=== PATIENT | male | born 1930 | race Caucasian/White ===

== ENCOUNTER 2016-10-22 08:18 | Inpatient (IN) | payer MEDICARE ==
[~2016-10-22] VITALS: Ht 172.7 cm; Wt 82.1 kg
--- NOTE | ~2016-10-22 | CON ---
[place], [place] REPORT OF CONSULTATION NAME: PABLITO SULLIVAN [facility] #: [id number] UNIT #: [id number] ROOM: 310 DOCTOR: FLORIAN TRUJILLO DPM BIRTHDATE: [birth year] DOS: 10/25/2016 He is in room 310, bed 1. SUBJECTIVE: This patient is seen as consulted for evaluation of a left heel wound. The patient is a resident of [facility] and was admitted for mental status changes. They were unaware of how long the wound has been on the left heel. PAST MEDICAL HISTORY: Positive for dementia, generalized anxiety order, gastroesophageal reflux disease, hypothyroidism, depression, Parkinson's, restless leg syndrome, schizoaffective disorder. ALLERGIES: The patient has no known drug allergies. MEDICATIONS: His current medications include Sinemet, Requip, Lasix, Depakote, Protonix, Synthroid, Neurontin, Exelon, Namenda, Geodon, Ativan. OBJECTIVE: EXTREMITIES: Upon lower extremity physical examination, DP pedal pulses are mildly decreased. PT pedal pulses are difficult to palpate. Skin temperature is cool at the toes. Skin is thin and shiny. Hair growth is diminished. There is dependent edema noted bilaterally with negative Homans sign. Upon neuro exam, sensation appears to be somewhat diminished bilaterally. The patient has a healed wound noted at the posterior plantar portion of the left heel, which measures probably 3-4 cm in diameter. It is full thickness into subcutaneous tissue. There is some necrotic tissue noted in the center portion of the wound. There are no active signs of infection. There is no surrounding edema or erythema. No purulent drainage or malodor. No bone is visible or palpable at this time, no signs of cellulitis or abscess. ASSESSMENT: Chronic left heel ulcer. Probable peripheral artery disease. PLAN: Consultation is performed. The patient was seen with his nurse. I recommend a heal protector and offloading of the left heel, recommend Bactroban and a dressing once a day to the area for now. Possibly change wound care once we establish arterial flow, noninvasive arterial Doppler were ordered bilaterally to evaluate for PAD. An x-ray was ordered to evaluate for underlying osteomyelitis. The patient will be followed up on Friday for reevaluation and go over his test results. For right now offloading the wound care for now until testing is done. Thanks for the opportunity to take part in care of this patient. [place], [place] REPORT OF CONSULTATION NAME: PABLITO SULLIVAN Keren UNIT #: [id number] ROOM: 310 DOCTOR: FLORIAN TRUJILLO DPM BIRTHDATE: [birth year] FLORIAN TRUJILLO DPM CM:CONSTR:REPORT OF CONSULTATION 1225 10/26/16 0118 interface
--- NOTE | ~2016-10-22 | PR ---
[place], [place] PROGRESS NOTE [id number] UN[facility] #: [id number] ROOM: 310 DOCTOR: FLORIAN TRUJILLO DPM BIRTHDATE: [birth year] DOS: 10/28/2016 SUBJECTIVE: This patient is seen for followup of left heel wound. He did have his x-ray and arterial Doppler was done at this time. He had no complaints. OBJECTIVE: EXTREMITIES: DP pedal pulses are mildly decreased. PT pedal pulses are difficult to palpate. Skin is thin and shiny. Skin temperature is cool. Dependent edema is seen bilaterally. Plantar posterior left heel actually looks improved. There is much less necrotic tissue. There is still some fibrous and slough tissue noted, but about 40-50% of the wound is starting to granulate, appears to be improving at this time. There is some mild malodor from the slough tissue, no surrounding edema or erythema. No signs of infection, clinically. His x-ray was negative for osteomyelitis. His arterial Doppler showed monophasic flow in the feet with significant atherosclerosis. ASSESSMENT: PAD, chronic left heel ulcer. PLAN: Evaluation and management. We are going to change wound care to [facility] with foam border and dry dressing as well as PRAFO boot to the left foot. Discussed results of the vascular and x-ray. We will continue with conservative management. Continue offloading. The wound looks better today than it did 3 days ago with less necrotic tissue and it does look healthier. Consider debridement in the future, but his vascular study showed monophasic flow. We will continue to follow while he is in the hospital. FLORIAN TRUJILLO DPM CM:PNTRANS [id number] [id number] FLORIAN TRUJILLO DPM 10/29/16 1011 interface
--- NOTE | ~2016-10-22 | CON ---
[place], [place] REPORT OF CONSULTATION NAME: PABLITO SULLIVAN UNIT #: [id number] ROOM: 310 DOCTOR: NASREEN HUBBARD BIRTHDATE: [birth year] DOS: 11/01/2016 HISTORY OF PRESENT ILLNESS: This 86-year-old gentleman from local detention significant decline in his mental status, labile, verbally and physically abusive, yelling out loudly with heart rate of 70. Difficult to redirect, escalating to the point where he had the entire word in up for disruptive ____ nursing facility stated they can no longer meet his needs and they need alternative placement once he was excepted and treated. He was admitted to rule out organic factors and stabilize medications. PAST MEDICAL HISTORY: Parkinson's disease, hypothyroidism, GERD, dementia, aggressive flu-like syndrome. He was diagnosed with brief psychotic disorder and rule out major depression with psychotic features. MENTAL STATUS: The patient is alert and oriented to person and place, I do not think time. No overt signs of auditory or visual hallucinations, delusions, paranoia, chalino, or hypomania. There are definitely some short term memory deficits, which is consistent with his dementia. PLAN: The patient is being discharged to [facility]. I believe at [place], he is being discharged on the following medications: He will be on Namenda 5 mg q.a.m. and 10 mg at bedtime in 2 weeks. Facility needs to increasing the Namenda to the maximum dose of 10 mg b.i.d. He is on Exelon patch 9.5 mg q.a.m. in 4 weeks, this needs to be increased to 13.3 mg q.a.m., Depakote is 500 mg t.i.d., again his last valproic acid level was on 10/28/2016 and it was 53.4. I recommend that his valproic acid level be checked at least every 3 months while he is on Depakote. He is on vitamin D 1000 units q.a.m. and that is all are psych meds that he is on. He is being discharged in stable condition. NATHANAEL HUBBARD CNP CM:CONSTR:REPORT OF CONSULTATION 1 11/01/16 1544 interface
--- NOTE | ~2016-10-22 | PR ---
[place], [place] PROGRESS NOTE NAME: PABLITO SULLIVAN UNIT #: [id number] ROOM: 316 DOCTOR: BRANDY PARISH MD BIRTHDATE: [birth year] DOS: 10/26/2016 CHIEF COMPLAINT: "Look at what they are doing over there, I saw them on TV, they are up to no good." SUMMARY OF THE VISIT: The patient was interviewed as he reclined in a Jody chair in the dining area. He remains very confused. He was also very labile and was shouting over to me to come near him. He was very upset about having seen something on television and seemed to then transfer this as if it was actively occurring around him. He did eventually redirect with a great deal of difficulty. MENTAL STATUS: He is alert and oriented to self. It is unclear if he realizes he is in the hospital, although this is was very doubtful. He is certainly not oriented to time. Mood remains labile. He is very easily agitated. There are no symptoms of auditory or visual hallucinations at this point, but there is a delusional system present. Short term memory is very poor. PLAN: His valproic acid level was subtherapeutic at 43.7. I will go ahead and increase his Depakote Sprinkles from 500 mg b.i.d. to t.i.d. I will simultaneously increase Namenda from 5 mg a day to 5 mg b.i.d. and increase Exelon patch from 4.6 mg daily to 9.5 mg daily. I am still looking into the possibility of getting him started on Nuplazid given the fact that he has significant Parkinson's and is on Sinemet which could be contributing to his psychosis. We will engage in individual and valiente milieu activity, returning then to the least restrictive environment when psychiatrically stable. BRANDY PARISH MD CM:PNTRANS 1125 [id number] BRANDY PARISH MD 10/26/16 1247 interface
--- NOTE | ~2016-10-22 | PR ---
[place], [place] PROGRESS NOTE NAME: PABLITO SULLIVAN UNIT #: [id number] ROOM: 316 DOCTOR: BRANDY PARISH MD BIRTHDATE: [birth year] DOS: 10/27/2016 CHIEF COMPLAINT: "Hey evaristo, good morning, what am I doing here." SUMMARY OF THE VISIT: The patient was interviewed as he was in the dining area, watching television, reclining in his Jody chair. He engaged readily in conversation. Most of it was superficial and in response to my questions. He was fixated on what was happening across the room, but was at least engaging. There was no agitation noted this morning. Later, I did here him yelling out, but when I did discuss this with the nurse, it was because he was yelling to use the restroom. Subsequently, he calmed after this was done. MENTAL STATUS EXAMINATION: He is alert and oriented to person, possibly place, although it is doubtful, certainly not time. Mood does seem to be trending towards euthymia. He has only required 1 p.r.n. intervention on Friday and none since then. He does redirect more readily. There is no hypomania or chalino. There are no auditory or visual hallucinations noted. Memory is poor and he processes slowly. PLAN: I will increase Namenda to 5 mg in the morning and 10 mg at night. I will recheck a valproic acid level in the a.m. to make certain that he is therapeutic. We would still like to consider the possibility of adding Nuplazid given the fact that he does have severe Parkinson's and I believe this is contributing to his mood lability and agitation. We will continue to engage in individual and valiente milieu activity with the plan then to return to the least restrictive environment when psychiatrically stable. BRANDY PARISH MD CM:PNTRANS [id number] BRANDY PARISH MD 10/27/16 1451 interface
--- NOTE | ~2016-10-22 | WRIGHTHP ---
[place], [place] PATIENT HISTORY AND PHYSICAL EXAM [id number] UN[facility] #: [id number] ROOM: 310 DOCTOR: BRANDY PARISH MD BIRTHDATE: [birth year] DOS: 10/25/2016 CHIEF COMPLAINT: "It's over there, can't she see it." HISTORY OF PRESENT ILLNESS: This is an 86-year-old white male who is a resident of [facility] in the [facility]. The patient apparently has had a significant decline in mental status to the point where he has been extremely labile and verbally and physically abusive. He has been yelling out loudly, also yelling out a tirade of obscenities. The patient does not redirect and in fact he continued to escalate to the point where he had the entire valiente milieu in an uproar. [facility] has reported that he is so disruptive, they no longer can meet his needs, and they feel that he needs to be in an alternative placement. The patient has likewise been becoming increasingly physically combative. He is admitted now to rule out any organic factors, to stabilize on medication, and to seek alternative placement, which most likely at this point will be [facility]. PAST MEDICAL HISTORY: Remarkable for Parkinson's disease, hypothyroidism, GERD, dementia, restless leg syndrome. MENTAL STATUS: The patient is alert and oriented to self only. He is very confused and disoriented. His responses to me were nonsensical at times and he tended to ramble. He does seem to be experiencing some type of hallucinations as well. He does have a significant processing issue and short-term memory is exceedingly poor. DIAGNOSIS: Brief psychotic disorder, rule out major depression with psychotic features. PLAN: I have already discontinued his donepezil in lieu of Exelon patch 4.6 mg a day. I have doubled his Depakote from 250 mg twice daily to 500 mg twice daily. I have discontinued his Zoloft at this point and we will continue to monitor his mood status. Given the fact that he has severe Parkinson's disease and does seem to have a psychosis secondary to the Parkinson's, I will see if we can obtain Nuplazid 34 mg daily to decrease the psychosis secondary to Parkinson's. We will continue to engage him in individual and valiente milieu activity. We will finalize discharge plans that he can return to [facility] and will discharge then when psychiatrically stable. [place], [place] PATIENT HISTORY AND PHYSICAL EXAM NAME: APBLITO SULLIVAN UNIT #: [id number] ROOM: 310 DOCTOR: BRANDY PARISH MD BIRTHDATE: [birth year] BRANDY PARISH MD CM:HISPHYS:PATIENT HISTORY AND PHYSICAL EXAMINATION 0759 0821 BRANDY PARISH MD 10/25/16 0821 interface
[2016-10-22] MEDS ORDERED: ASPIRIN CHEWABL81 M1 PO (18:17)
[2016-10-22] MEDS ORDERED: ATIVAN2 MG/1 ML IJ (18:18)
[2016-10-22] MEDS ORDERED: ATIVAN1 MG PO (18:19)
[2016-10-22] MEDS ORDERED: Sinemet Cr 25-11 TAB PO (18:19)
[2016-10-23] MEDS ORDERED: Sinemet Cr 25-11 TAB PO (16:07)
[2016-10-23] MEDS ORDERED: SINEMET 25-1001 EACH PO (16:09)
[2016-10-23] MEDS ORDERED: DEPAKOTE250 MG PO (16:11)
[2016-10-23] MEDS ORDERED: ARICEPT5 M1 PO (16:12)
[2016-10-23] MEDS ORDERED: LASIX20 MG PO (16:12)
[2016-10-23] MEDS ORDERED: GABAPENTIN100 M2 PO (16:13)
[2016-10-23] MEDS ORDERED: KLONOPIN0.5 MG PO (16:14)
[2016-10-23] MEDS ORDERED: MULTI-DAY VITA1 EACH PO (16:15)
[2016-10-23] MEDS ORDERED: NIACIN50 M1 PO (16:17)
[2016-10-23] MEDS ORDERED: PROTONIX TR40 M1 PO (16:17)
[2016-10-23] MEDS ORDERED: REQUIP0.5 MG PO ×2 (16:18→16:19)
[2016-10-23] MEDS ORDERED: Synthroid,Lev100 MCG PO (16:20)
[2016-10-23] MEDS ORDERED: ZOLOFT50 MG PO (16:20)
[2016-10-23] MEDS ORDERED: GEODON20 MG PO (16:21)
[2016-10-23] MEDS ORDERED: HYDROCIL INSTA1 EACH PO (16:23)
--- NOTE | 2016-10-24 15:37 | NUR ---
Mr Susanna is a new PT, that came into the unit at the end of RT Group/riddles,choices
[2016-10-24 15:57] VITALS: BP 107/56; BP 108/60
--- NOTE | 2016-10-24 16:06 | NUR ---
DR. PABLITO CASANOVA AWARE OF CONSULT FOR MEDICAL MANAGMENT, MED REQ AND HISTORY COMPLETE
[2016-10-24 16:40] VITALS: BP 108/60
--- NOTE | 2016-10-24 17:38 | NUR ---
PABLITO SULLIVAN Keren a 86 year old M admitted via wheel chair from the ADMITTING as a voluntary admission VIA GUARDIAN. Arrived on unit at 1513. ALLERGIES: NKA. Vital signs are: 98.1-71-18 108/60, 96% RA. The client signed the following forms with stated understanding: Authorization For The Release of Medical Information, Clothing List, Consent to Voluntary Admission and Hospitalization, Consent and Release Forms/Receipt of Rights, Acknowledgement of Advance Directive Information, Behavioral Health Consent Form, and Informed Consent of Medications. Admitted under the services of Dr. JEM TEIXEIRA,[facility]. A search was conducted and hazardous articles were removed. Client was oriented to the unit. GEM RODRIGUEZ
[2016-10-24 20:20] VITALS: BP 146/75
--- NOTE | 2016-10-24 22:22 | NUR ---
XRAY SCRIPT READER ON UNIT TO OBTAIN XRAYS
--- NOTE | 2016-10-25 03:59 | NUR ---
24 HR chart check completed.
--- NOTE | 2016-10-25 05:54 | NUR ---
PT SLEPT PAST 0032. NO S/S OF DSITRESS NOTED. NO C/O PAIN. DRESSINGS TO WOUNDS REMAIN INTACT. FEET ELEVATED WITH HEELS OFF THE BED. PT WILL MOVE FEET OFF PILLOW MULTIPLE TIMES AND PT REDIRECTED WITH NO EFFECTIVENESS. PT GIVEN BED BATH THIS AM. PT DID NOT YELL OUT THIS SHIFT. MEDICATION COMPLIANT. Q15 MINUTE SAFETY CHECKS MAINTAINED.
[2016-10-25 07:15] LABS: BASO % 0.3 % (0.0-1.0); EOS % 0.1 % (1.0-4.0); HEMATOCRIT 33.8 % (42.0-52.0); HEMOGLOBIN 10.9 g/dl (14.0-18.0); LYMPH % 13.1 % (27.0-41.0); MEAN CELL VOLUME 102.1 fl (80.0-94.0); MEAN CORPUSCULAR HGB 32.9 pg (27.0-31.0); MEAN CORPUSCULAR HGB CONC 32.2 g/dl (33.0-37.0); MEAN PLATELET VOLUME 11.1 fl (9.6-12.3); MONO # 0.7 10*3/uL (0.1-1.0); MONO % 9.6 % (3.0-9.0); NEUT # 5.7 10*3/uL (2.3-7.9); NEUT % 76.5 % (47.0-73.0); PLATELET COUNT AUTOMATED 165 10*3/uL (130-400); RED BLOOD COUNT 3.31 10*6/uL (4.50-5.90); RED CELL DISTRI WIDTH 13.8 % (0-14.5); WHITE BLOOD COUNT 7.4 10*3/uL (4.8-10.8)
[2016-10-25 07:54] VITALS: BP 106/55
[2016-10-25 08:01] LABS: ALBUMIN 2.4 gm/dl (3.1-4.5); ALKALINE PHOSPHATASE 71 U/L (45-117); BUN 22 mg/dl (7-24); CHLORIDE 108 mmol/L (98-107); CREATININE 0.76 mg/dL (0.70-1.30); POTASSIUM 3.6 mmol/L (3.5-5.1); SGOT/AST 22 IU/L (3-35); SGPT/ALT 6 U/L (12-78); SODIUM 144 mmol/L (136-145); TOTAL PROTEIN 6.7 gm/dL (6.4-8.2)
[2016-10-25 08:19] LABS: VITAMIN D, 25-HYDROXY 27.8 ng/mL (30-100)
--- NOTE | 2016-10-25 08:44 | NUR ---
PT INCONTINENT OF URINE. PT REPORTS THAT HE WOULD LIKE TO TRY AND URINATE IN A URINAL FOR URINE SPECIMEN COLLECTION AT A LATER TIME. SAYS HE IS UNABLE TO VOID AT THIS TIME.
--- NOTE | 2016-10-25 09:26 | NUR ---
TREATMENT TEAM WAS HELD TO DISCUSS CARE WITH THE FOLLOWING: DR. PARISH, NURSE PRACTIONER, MEDICAL STUDENT, RN, AT, AND SW. PT WAS TRANSF[facility]. PT PLEASANTLY CONFUSED.
--- NOTE | 2016-10-25 09:48 | NUR ---
SAEED left vm for Yu to update Pasrr-significant change paperwork after she had told this SWS that Deborah was to update it at [facility], but upon talking to Deborah, Deborah states that Yu should update it since the pt. has been there and she knows the pt. SAEED also left a message with Alyson the admission director at that the paperwork needed for the update on the Pas[facility] has been faxed to Yu to update.
--- NOTE | 2016-10-25 10:27 | NUR ---
PABLITO SULLIVAN [id number] Please refer to the physician's history and physical for past medical history, comorbid conditions, and allergies. Diagnosis: BRIEF PSYCHOTIC DISORDER Berhane Score: 14,VERY HIGH RISK WOUND DESCRIPTIONS: Location of the wound: left heel Type of wound: unstageable Thickness: Full Size: 3.0cm x 4.0cm x <0.1cm Tunneling: none Undermining: none Sinus Tract: none Presence of Exudate: none Amount: None Color: Brown Odor: None Periwound Skin Appearance: Normal Wound edges: approximated Pain (associated with wound): none at time of assessment How does patient state this happened? pt stated started back in june then in the same sentence stated it was 10 days ago. Right heel red and blanchable area noted. Location of the wound: right buttocks Type of wound: stage 2 Thickness: Partial Size: 1.0cm x 1.0cm x 0.1cm Tunneling: none Undermining: none Sinus Tract: none Presence of Exudate: Sanguineous Amount: Light Color: Red Odor: None Periwound Skin Appearance: Normal Wound edges: approximated Pain (associated with wound): none at time of assessment How does patient state this happened? pt didnt say how this occured Surface the patient is resting on: Proform SKIN PREVENTION RECOMMENDATION: 1. Pressure redistribution support surface as appropriate 2. Elevate heels 3. Remove boots/TEDS every shift and reapply 4. Head of bed 30 degrees as tolerated 5. Assess nutrition and hydration 6. Manage moisture 7. Avoid the use of containment devices while in bed 8. Use absorptive products on surfaces limit layers of linens on bed 9. Turn and reposition every 1-2 hours in bed and every 1 hour in chair as tolerated 10. Weight shifts every 15 minutes while up in chair 11. Offloading with pillows or device to keep heels elevated off bed 12. Monitor skin at least every shift 13. Inspect under medical devices twice a day WOUND TREATMENT RECOMMENDATIONS: Consult podiatry since Dr. Meza isn't able to see the patient until friday. Heel raiser pro boots to BLE if able to get PRAFO boots change order once we get them in. Calazime to buttocks.
--- NOTE | 2016-10-25 10:37 | NUR ---
PT YELLING OUT AND IS NOT EASILY REDIRECTIBLE. PT BEGAN BANGING A TABLE TOP AGAIN THE WINDOW WHILE SITTING IN GERICHAIR. PT IS DISORIENTED, CONFUSED AND ANXIOUS. ATIVAN GIVEN CRUSHED IN PUDDING TO HELP DECREASE PATIENT'S ANXIOUS BEHAVIOR.
--- NOTE | 2016-10-25 10:39 | NUR ---
PT ENCOURAGED TO URINATE IN CUP FOR URINE SPECIMEN COLLECTION BUT PATIENT DOES NOT COMPREHEND THIS RN'S REQUEST. HE IS FIXATED ON YELLING OUT "7A OR 7B" REPEATEDLY. WILL ATTEMPT TO COLLECT URINE SPECIMEN ONCE ATIVAN TAKES EFFECT.
--- NOTE | 2016-10-25 10:51 | NUR ---
SONDRA, A STAFF MEMBER AT DR. MCKEON'S OFFICE, MADE AWARE THAT DR. MCKEON HAS BEEN CONSULTED TO SEE PATIENT FOR FOOT WOUNDS. SHE STATED THAT DR. LI WILL BE IN TO SEE THE PATIENT LATER TODAY.
--- NOTE | 2016-10-25 11:06 | NUR ---
PT was in attendence for RT Group/Discussion during the first approximate 10 minutes. PT was yelling out for various things. Asked PT to please stop yelling and interupting group. PT stated i was interuping him and started yelling for a nurse. PT was removed to quiet room. Nurse notified
--- NOTE | 2016-10-25 11:47 | NUR ---
ATIVAN EFFECTIVE IN DECREASING ANXIOUS SYMPTOMS. PT IS CURRENTLY IN ACTIVITY ROOM SITTING IN [facility]. HE IS CALM AND CONFUSED.
--- NOTE | 2016-10-25 12:11 | NUR ---
CLINICALS GIVEN TO GIOVANNY AT [facility]. POLY 6 DAYS. - WITH NEXT REVIEW DUE 10/29.
--- NOTE | 2016-10-25 13:27 | NUR ---
PHYSICAL THERAPY Staff has been educated to keep patient off of his feet due to significant wounds. Staff using mauro at this time. Not appopriate for PT services currently. thank you for this referral. Cinthia Swenson,PT
--- NOTE | 2016-10-25 13:31 | NUR ---
ATTEMPT MADE TO STRAIGHT CATH MET WITH RESISTANCE. PT WAS COOPERATIVE WITH DURING PROCESS BUT THIS RN WAS UNABLE TO COLLECT URINE. PT WAS ASSISTED FROM [facility] TO HIS BED AND EPISODE OF INCONTINENCE WAS CLEANSED WITH 2 STAFF ASSIST. PT WAS TRANSFERED USING A GEIRCHAIR DUE TO PATIENT'S INABILITY TO BARE WEIGHT AT THIS TIME. BILATERAL HEEL PROTECTORS APPLIED TO PATIENT RECOMMENDED BY GOLDY CA.
--- NOTE | 2016-10-25 14:35 | NUR ---
PT did not attend RT Group/games. PT was asleep in his room
--- NOTE | 2016-10-25 15:32 | NUR ---
PT is unable to answer questions on assessment form. PT too confussed
--- NOTE | 2016-10-25 15:58 | NUR ---
Dr. Galloway and Dr. Morris made aware that patient in incontinent of urine and that when attempting to straight cath patient, this RN mmet resistance. Will continue to attempt to collect specimen using frequent urinal offerings.
--- NOTE | 2016-10-25 18:03 | NUR ---
MAKI from [facility] reporting that Pt is covered 6 days - with review on .
--- NOTE | 2016-10-25 18:28 | NUR ---
PT IS DISORIENTED, CONFUSED BUT CALM FOR THE MOST PART AFTER ATIVAN WAS GIVEN. PT'S APPETITE IS GOOD HE ATE ALL MEALS TODAY. PT ATTEMPTS TO REMOVE HIS PROTECTIVE BOOTS MANY TIMES THROUGHTOUT THE DAY AND DOES NOT UNDERSTAND WHY THEY HAVE BEEN PLACED. HE CONTINUES TO SIT IN GERICHAIR IN A RECLINED POSITION IN ORDER TO KEEP FEET ELEVATED.
[2016-10-25 20:00] VITALS: BP 130/86
--- NOTE | 2016-10-26 00:19 | NUR ---
ATTEMPT TO PLACE CONDOM CATH UNSUCCESSFUL DUE TO RETRACTION. WILL ATTEMPT A PEDIATRIC BAG COLLECTION FOR URINE SAMPLE.
--- NOTE | 2016-10-26 00:32 | NUR ---
PEDIATRIC URINARY DRAINIGE BAG PLACED. FREQUENT ASSESSMENT FOR URINATION IN PLACE.
--- NOTE | 2016-10-26 01:20 | NUR ---
ULCER TO LT HEEL CLEANSED WITH NORMAL SALINE, BACTROBAN APPLIED, DRESSING IN PLACE.
--- NOTE | 2016-10-26 04:57 | NUR ---
PT SLEPT POORLY DURING THIS SHIFT, FREQUENTLY AWAKENING WITH NONSENSICAL SPEECH. ALERT TO NAME ONLY. UNABLE TO PROPERLY ASSESS FOR DELUSIONAL THOUGHT PROCESSES, SI/HI. PT MEDICATION COMPLIANT WITH MUCH PROMPTING. PLEASANTLY CONFUSED. REFER TO FLOWSHEET FOR ADDITIONAL INFO
--- NOTE | 2016-10-26 06:11 | NUR ---
PT SLEPT <4HRS WITH FREQUENT INTERRUPTIONS
[2016-10-26 08:03] VITALS: BP 117/51
--- NOTE | 2016-10-26 18:20 | NUR ---
Christian is noted to be oriented to person only and during time spent with staff he responded for the most part with irrelevant statements. Unable to comprehend simple instructions or to complete simple tasks due to limited cognitive functioning. Requires maximal assistance with ADL's. He is restless and confused and makes continuous attempts to climb out of bed and out of gerichair. Fall precautions maintained. Valproic Acid level @ 43.7. Dr. Rodriguez in with orders received to increase the Depakote 500 mg po tid, increase the namenda to 5 mg bid and exelon increased to 9.5 mg q hs. He has napped approximately one hour. Appetite is good for meals with encouragement. Refer to [facility] flowsheet for specific monitoring. Refer to process intervention screen for wound care.
[2016-10-26 20:25] VITALS: BP 108/62
--- NOTE | 2016-10-27 03:32 | NUR ---
24HR CHART CHECK COMPLETE
--- NOTE | 2016-10-27 05:34 | NUR ---
PT SLEPT >5HRS WITH FREQUENT INTERRUPTIONS. PT VISUALIZED PICKING AT UNSEEN OBJECTS IN THE AIR WHILE IN HIS ROOM. PT ORIENTED TO PERSON ONLY. NO CHANGE IN BEHAVIORS NOTED. PLEASANTLY CONFUSED. REFER TO FLOWSHEET FOR ADDITIONAL INFO
[2016-10-27 08:20] VITALS: BP 102/57
--- NOTE | 2016-10-27 10:23 | NUR ---
PATIENT RECEIVED COMPLETE BED BATH THIS SHIFT. TOILETED AND WAS CONTINENT OF URINE AND LARGE AMOUNT OF NON-FORMED, BROWN STOOL WITH MODERATE AMOUNT OF BLOOD. ALEM BA NOTIFIED AND CAME TO ROOM TO ASSESS.
--- NOTE | 2016-10-27 10:44 | NUR ---
PT HAD LARGE SOFT BM THIS SHIFT WITH MODERATE AMOUNT BRIGHT RED BLOOD NOTED IN STOOL, CALL PLACED TO DR. GROSS, MADE AWARE, VITALS STABLE, 97.5-64-18-112/60-98% ROOM AIR. MADE AWARE PT DOES HAVE EXTERNAL HEMMORHOIDS UPON ASSESSMENT. N.N.O. RECIEVED AT THIS TIME, DR. GROSS STATES TO CONTINUE TO MONITOR.
--- NOTE | 2016-10-27 10:46 | NUR ---
URINALYSIS OBTAINED VIA CLEAN CATCH, LABELED AND SENT TO LAB. URINE NOTED TO BE CLOUDY AND FOUL SMELLING.
[2016-10-27 10:56] LABS: BILIRUBIN NEGATIVE (NEGATIVE); BLOOD 3+ (NEGATIVE); CLARITY CLOUDY (CLEAR); COLOR YELLOW (YELLOW); GLUCOSE NEGATIVE (NEGATIVE); KETONE TRACE (NEGATIVE); LEUKO ESTERASE 3+ (NEGATIVE); NITRITE POSITIVE (NEGATIVE)
[2016-10-27 11:22] LABS: BACTERIA 3+; CALCIUM OXALATE CRYSTALS FEW; RBC TNTC rbc/hpf (0-2); WBC TNTC wbc/hpf (0-5)
--- NOTE | 2016-10-27 13:09 | NUR ---
DR. LUTHER, DR. GROSS, DR. GERARDO HERE TO SEE PT AT THIS TIME, MADE AWARE OF PT'S URINALYSIS RESULTS.
--- NOTE | 2016-10-27 18:30 | NUR ---
PT IS ALERT WITH CONFUSION. ST/LT MEMORY DEFICITS NOTED. RESPIRATIONS EASY ON ROOM AIR. MOOD IS STABLE WITH FLAT AFFECT. PT OCCASIONALLY YELLS OUT BUT IS EASILY REDIRECTABLE. PT DENIES HALLUCINATIONS, NO RESPONSE TO INTERNAL STIMULI NOTED. PT DENIES SI/HI. NO PARANOIA/DELUSIONS NOTED. MEDICATION COMPLIANT WITHOUT DIFFICULTY. RELIANT ON STAFF FOR ALL ADLS. FEEDS SELF WITH SET UP ASSIST. DISPLAYS GOOD APPETITE WITH ADEQUATE FLUID INTAKE. FIRST DOSE OF LEVAQUIN GIVEN ORDERED BY DR. GROSS FOR TX OF UTI. NO DISTRESS NOTED. Q15 MIN SAFETY CHECKS MAINTAINED. REFER TO [facility] FLOWSHEET FOR SPECIFIC MONITORING.
--- NOTE | 2016-10-27 19:24 | NUR ---
SHIFT CHART CHECK COMPLETED.
[2016-10-27 20:00] VITALS: BP 129/64
--- NOTE | 2016-10-27 22:04 | NUR ---
24 HR chart check completed.
--- NOTE | 2016-10-28 00:35 | NUR ---
PT HAS BEEN RESTLESS. HAS BEEN YELLING OUT FOR DOUGLAS. VISUAL HALLUCINATIONS SUSPECTED PT HAS INFORMED STAFF SEVERAL WHILE GOING NEAR HIM NOT TO STEP ON THE PUPPIES. MEDICATED WITH ATIVAN 1 MG PO @ 0029.
--- NOTE | 2016-10-28 05:44 | NUR ---
ATIVAN GIVEN WAS ONLY EFFECTIVE BRIEFLY. PT SLEPT LESS THAN 3 HOURS WITH INTERMITTENT NAPPING. HAS BEEN CALMER BUT IS CONFUSED & ALERT TO PERSON ONLY. VISUAL HALLUCINATIONS CONTINUE. HAS BEEN PICKING AT THE AIR & TALKING ABOUT THE PUPPIES.
[2016-10-28 06:54] VITALS: BP 111/62
--- NOTE | 2016-10-28 09:20 | NUR ---
PATIENT SITTING IN GAURI CHAIR. ROUNDING WITH ARAMIS HERRERA CNP AND ASSESSING PATIET'S LEFT FOOT. LIFTED PATIENT'S PANT LEG UP AND OBSERVED 2 SKIN TEARS. 1=0.9X1.0X0 AND 2=0.3X0.2X0 TO LEFT PRUITT, CLEANSED WITH NORMAL SALINE AND APPLIED BANDAID FOR PROTECTION. INTERESTED CONSTITUTION PARTY NOTIFIED.
--- NOTE | 2016-10-28 09:20 | NUR ---
ARAMIS HERRERA CNP ON UNIT TO SEE PATIENT.
--- NOTE | 2016-10-28 09:45 | NUR ---
ARAMIS HERRERA OBEDIENCE TRAINER HERE TO SEE PT AT THIS TIME, ASSESSED HEEL WOUND.
--- NOTE | 2016-10-28 10:15 | NUR ---
[facility] Team was held to discuss care with the following: Dr. Rodriguez, RN, AT, and SW. Pending discharge for FridayOctober 30. Not sleeping at night.
--- NOTE | 2016-10-28 10:15 | NUR ---
PATIENT REFUSED MEDICATION, SPIT THEM OUT. EXELON PATCH IN PLACE.
--- NOTE | 2016-10-28 11:20 | NUR ---
PT was in attendence for RT Group/Reminiscing but did not participate. PT asleep for part of group and did yell out twice but was not disruptive
--- NOTE | 2016-10-28 12:30 | NUR ---
DR. MANUEL ON UNIT TO SEE PATIENT.
--- NOTE | 2016-10-28 15:33 | NUR ---
PT did not attend RT Group this afternoon. PT was in bed.
--- NOTE | 2016-10-28 17:44 | NUR ---
PATIENT IS ALERT AND ORIENTED TO PERSON/HANDS ON CARE ONLY. ST/LT MEMORY DEFICITS NOTED. PATIENT DENIES ANY HALLUCINATIONS, DELUSIONS OR HI/SI. DENIES ANY PAIN OR DISCOMFORT. PATIENT CAN BE ANXIOUS AND RESTLESS AT TIMES. MEAL INTAKES ARE GOOD WITH ADEQUATE FLUIDS. CONTINENT OF BOWEL AND BLADDER. UP IN GAURI CHAIR IN A RECLINED POSITION. MEDICAITON COMPLIANT. Q 15 MINUTE SAFETY CHECKS MAINTIANED.
[2016-10-28 20:11] VITALS: BP 104/58
--- NOTE | 2016-10-29 02:49 | NUR ---
B: AGITATION AND CONFUSION, PT STATES "I NEED MY KEYS, NEED TO GET THESE SHOES OFF SO WE CAN GET OUT OF THIS HOLE" WHILE REMOVING PROFFO BOOT BLE FOR WOUND HEALING. I: PT OFFERED FOOD AND FLUIDS, PROVIDED 1-[address] REORIENT TO PLACE AND TIME. PROVIDED WITH BUSY BOARD FOR DISTRACTION, TAKEN TO QUIET ROOM FOR DECREASE IN STIMULATION R: PT CONSUMED HS SNACK WITH SECONDS, MEDICATION COMPLIANT CRUSHED IN PUDDING, PT EXHIBITING DECREASE IN RESTLESSNESS P: CONTINUE TO PRESENT REALITY, PROVIDE DISTRACTION, PROVIDED 1-1 AND REORIENTATION TO SURROUNDINGS
--- NOTE | 2016-10-29 04:27 | NUR ---
24 HR chart check completed.
--- NOTE | 2016-10-29 06:40 | NUR ---
PT SLEPT APPROXIMATELY 6 HOURS INTERRUPTED. NO S/S OF DISTRESS NOTED. NO C/O PAIN. SEE [facility] FLOWSHEET FOR SPECIFIC MONITORING.
[2016-10-29 07:03] LABS: CHOLESTEROL 94 mg/dL (<200); HDL CHOLESTEROL 29 mg/dl (40-60); LDL CHOLESTEROL 54 mg/dL (9-159); TRIGLYCERIDES 57 mg/dl (<150); VLDL CHOLESTEROL 11 mg/dL (6-40)
[2016-10-29 07:53] VITALS: BP 105/64
--- NOTE | 2016-10-29 11:31 | NUR ---
PT was in attendence during RT Group/Coloring with talking and remininscing. PT did dot participate. AT asked PT if he had a goal for today and PT said "NO." asked group what they would like to do for group and PT would not participate.
--- NOTE | 2016-10-29 13:11 | NUR ---
AT was in activity lounge and overheard another PT ask this PT if he would like to color. PT stated "But what would I color?" So AT found a larger picture for him to color and PT is now enjoying the activity of coloring
--- NOTE | 2016-10-29 14:20 | NUR ---
SWS left message with ОЛЕГ Nicholas at [facility] to give update on siginifcant change paperwork and fax the results to .
--- NOTE | 2016-10-29 14:39 | NUR ---
PATIENT IS ALERT TO PERSON (HANDS ON CARE), ABLE TO VOICE NEEDS. PATIENT HAS BEEN CALM AND PURPOSEFUL, PARTICIPATING IN GROUP, LIKES TO COLOR, NO OUTBURST NOTED OF YET. MOOD IS BECOMING MORE STABLE, WITH SLIGHT CONFUSION. DENIES ANY HALLUCINATION, DELUSION, HI/SI OR PAIN. TOLERATED DRESSING TREATMENT TO LEFT HEEL WELL. NO RESPONSE TO INTERNAL STIMULI. DEPENDENT ON ACTIVITIES OF DAILY LIVING. UP IN GAURI CHAIR. CONTINENT OF BOWEL AND BLADDER. GOOD MEAL INTAKES WITH ADEQUATE FLUIDS. MED COMPLIANT. Q 15 MINUTE SAFETY CHECKS MAINTAINED.
--- NOTE | 2016-10-29 15:34 | NUR ---
PT attended RT Group/coloring and discussion ( PTs requested this again). PT sat and colored pictures and spoke when spoken to but otherwise was quiet as he colored. PT was appropriate entire time in group
--- NOTE | 2016-10-29 16:18 | NUR ---
PATIENT SITTING IN DINNING ROOM CALM, ENCOURAGE FLUIDS, VITALS 90/68, 58, 18, 96.5, 98% RA, RESPIRATIONS EASY, NON-LABORED. ARAMIS HERRERA CNP NOTIFIED OF LOW BLOOD PRESSURE. NEW ORDERS NOTED.
[2016-10-29 19:53] VITALS: BP 102/62
--- NOTE | 2016-10-29 21:59 | NUR ---
B- PT HAS INCREASED AGITATION AND CONFUSION. REPETITIVELY TRYING TO REMOVE PRAFFO BOOTS TO BILATERAL FEET. I- PT REDIRECTED, 1:1 GIVEN TO DISTRACT PT FROM REMOVING BOOTS. PT GIVEN SNACK AND MEDICATION R- PT ATE 100% OF SNACK AND WAS MEDICATION COMPLIANT. PT REDIRECTION EFFECTIVE P- CONTINUE TO REDIRECT PT AND REORIENT TO PERSON, PLACE, AND TIME AND REASONING FOR THE BOOTS.
--- NOTE | 2016-10-29 22:24 | NUR ---
PT MORE ALERT THIS SHIFT. 1:1 WITH A STAFF MEMBER AT THIS TIME AND PT AWAKE AND ALERT TALKING ABOUT A CHECKING ACCOUNT, BASILIO HOWELL.
--- NOTE | 2016-10-30 04:46 | NUR ---
PT SLEPT GREATER THAN 5 HOURS. NO S/S OF DISTRESS OR C/O PAIN. Q 15 MINUTE SAFETY CHECKS MAINTAINED. SEE [facility] FLOWSHEET FOR SPECIFIC MONITORING. DRESSING INTACT TO HEAL. PRAFFO BOOTS INTACT. MEDICATION COMPLIANT THIS SHIFT.
--- NOTE | 2016-10-30 05:59 | NUR ---
24 HR chart check completed.
[2016-10-30] MEDS ORDERED: RIVASTIGMINE1 EAC1 T (08:12)
[2016-10-30] MEDS ORDERED: Sinemet 25 MG-100 MG PO (08:12)
[2016-10-30] MEDS ORDERED: MEMANTINE HCL10 MG PO (08:12)
[2016-10-30] MEDS ORDERED: NAMENDA-5 PO (08:12)
[2016-10-30] MEDS ORDERED: Sinemet Cr 25-11 TAB PO ×2 (08:12)
[2016-10-30 08:33] VITALS: BP 113/59
--- NOTE | 2016-10-30 09:05 | NUR ---
RT ON UNIT TO COMPLETE HOME O2 ASSESSMENT. ENE, MANAGER OF PLANNING ON UIT AND MADE AWARE PT WAS TOILETED THIS MORNING AND HAD BLOOD STOOL WITH INCREASED SIZE IN EXTERNAL HEMMORHOIDS.
--- NOTE | 2016-10-30 10:00 | NUR ---
ENE, LARGE ANIMAL HUSBANDRY TECHNICIAN ON UNIT AND MADE AWARE PT HAD A BLOOD STOOL WITH INCREASED SIZE IN EXTERNAL HEMMORHOIDS NOTED. NNO AT THIS TIME.
[2016-10-30 10:08] LABS: NEURONTIN (GABAPENTIN) 1.9 ug/mL (4.0-16.0)
--- NOTE | 2016-10-30 10:22 | NUR ---
PT did not attend RT Group this morning. PT was in the shower at beginning of group. PT refused when AT asked him if he wanted do a group when he was out of the shower
--- NOTE | 2016-10-30 10:41 | NUR ---
SAEED spoke with ОЛЕГ Nicholas at [facility] who states she did not do a signficiant change form for the pasrr on said pt. because she is not required to do. This SWS attempted to educate Yu in regards to the need for one due to hospitalization and she said she would not be doing one because it is not required. SAEED reached out to Chana at [facility] and Sasha at the [facility] to assist in this pt. d/c.
--- NOTE | 2016-10-30 10:47 | NUR ---
Sasha from the [facility] office called back, she is trying to get in touch with a [facility] tubing supervisor who will get the information from this SWS and will call the [facility] to let her know it is her responsibility to to complete the form and forward it to the State today.
[2016-10-30] MEDS ORDERED: Vitamin D PO (11:08)
[2016-10-30] MEDS ORDERED: LEVAQUIN750 M1 PO (11:11)
--- NOTE | 2016-10-30 11:22 | NUR ---
SWS spoke with Susie, pre-admissions at the Dept. of aging who states she called Yu, the SW at [facility] and left a vm that she needed to do the Pasrr change in condition paperwork and that it should have been done within 72 hrs. of pt. leaving the facility. The [facility] Office will also be looking into this delay. SW at [facility] to do per Dept. on Aging and SW will need to call the State tomorrow to assure that it has been done by Yu.
--- NOTE | 2016-10-30 11:42 | NUR ---
VOIE MAIL LEFT FOR MONA AT [facility] THAT DC HAS BEEN WRITTEN BUT STAFF HAVING PAPERWORK DIFFICULTIES IN GETTING HIM TO THE FACILTIY. LCD WAS 10/29/16.
[2016-10-30 12:20] LABS: BASO % 0.2 % (0.0-1.0); EOS # 0.1 10*3/uL (0.0-0.4); EOS % 1.7 % (1.0-4.0); HEMATOCRIT 33.8 % (42.0-52.0); LYMPH % 29.7 % (27.0-41.0); MEAN CELL VOLUME 100.9 fl (80.0-94.0); MEAN CORPUSCULAR HGB 32.8 pg (27.0-31.0); MEAN CORPUSCULAR HGB CONC 32.5 g/dl (33.0-37.0); MEAN PLATELET VOLUME 10.9 fl (9.6-12.3); MONO # 0.5 10*3/uL (0.1-1.0); MONO % 7.5 % (3.0-9.0); PLATELET COUNT AUTOMATED 185 10*3/uL (130-400); RED BLOOD COUNT 3.35 10*6/uL (4.50-5.90); RED CELL DISTRI WIDTH 13.3 % (0-14.5); WHITE BLOOD COUNT 6.6 10*3/uL (4.8-10.8)
[2016-10-30 12:49] LABS: ALBUMIN 2.3 gm/dl (3.1-4.5); ALKALINE PHOSPHATASE 69 U/L (45-117); BUN 13 mg/dl (7-24); CHLORIDE 104 mmol/L (98-107); CREATININE 0.57 mg/dL (0.70-1.30); POTASSIUM 3.6 mmol/L (3.5-5.1); SGOT/AST 13 IU/L (3-35); SODIUM 141 mmol/L (136-145); TOTAL PROTEIN 6.6 gm/dL (6.4-8.2)
[2016-10-30 12:50] LABS: SGPT/ALT < 6 U/L (12-78)
--- NOTE | 2016-10-30 13:00 | NUR ---
Sasha from the [facility] Office called and states that Mana from this office will begin the investigation in regards to this pasrr issue and complaint today. Mana's phone number is: .
--- NOTE | 2016-10-30 15:23 | NUR ---
TREATMENT TEAM WAS HELD WITH THE FOLLOWING: DR. PARISH, MEDICAL STUDENT, BUSINESS BANKER, RN, AT, SW. PT PENDING DISCHARGE WHEN PASRR UPDATE IS COMPLETED BY FACILITY.
--- NOTE | 2016-10-30 16:09 | NUR ---
ОЛЕГ SPOKE WITH TELECOMMUNICATION ENGINEER [facility] - REBECCA REGARDING LETTER NEEDED FOR PROBATE COURT. REBECCA STATED THAT LETTER WAS NEEDED TO SUBMIT TO PROBATE COURT THAT HE WAS OK TO MOVE PATIENT FROM HOSPITAL TO IN. LETTER CAN COME FROM ОЛЕГ. ОЛЕГ WILL HAVE LETTER SENT TODAY. FAX # [phone].
--- NOTE | 2016-10-30 16:12 | NUR ---
ОЛЕГ ASKED FOR ASSISTANCE FROM VACCINATOR TO HAVE LETTER TYPED ON LETTERHEAD FOR PROBATE [address] THAT PT WAS ABLE TO BE MOVED FROM HOSPITAL TO [place]. VACCINATOR TYPED LETTER FOR ОЛЕГ.
--- NOTE | 2016-10-30 16:13 | NUR ---
ОЛЕГ SIGNED LETTER FOR PROBATE COURT AND FAXED IT TO INSTANT POWDER SUPERVISOR'S OFFICE. COPY ON CHART.
--- NOTE | 2016-10-30 17:02 | NUR ---
PLEASANTLY CONFUSED PER USUAL. ALERT AND ORIENTED TO SELF ONLY. MEDICATION COMPLIANT WITHOUT DIFFICULTY. MOOD IS STABLE AND EUTHYMIC. HAS BEEN CALM AND COOPERATIVE WITH STAFF AND HOC. WOUND CARE TX COMPLETED TO LEFT HEEL PER ORDERS. FALL PRECAUTIONS MAINTAINED PER POLICY. WILL CONTINUE TO MAINTAIN Q15 MIN SAFETY CHECKS PER ORDERS. HAS BEEN AWAKE IN DINNING ROOM MOST OF THE DAY, WATCHING TV. WILL CONTINUE TO REORIENT NEEDED.Q2HR TURN AND REPOSITIONING MAINTAINED.
--- NOTE | 2016-10-30 17:28 | NUR ---
APPETITE HAS BEEN GOOD THIS SHIFT. TAKING FLUIDS WELL. OFTEN REQUEST ICE WATER T/O THE DAY AND PROVIDED BY STAFF. WAS CONTINENT OF URINE AND BOWEL THIS SHIFT.
[2016-10-30 20:30] VITALS: BP 150/78
--- NOTE | 2016-10-30 21:36 | NUR ---
CLIENT UP IN [facility] AT THIS TIME WITH BILATERAL LOWER EXTREMITIES ELEVATED. MEDICATION COMPLIANT. NO COMPLAINTS OF DYSURIA. VOICES NO COMPLAINTS OF PAIN OR DISCOMFORT AT THIS TIME
--- NOTE | 2016-10-31 04:03 | NUR ---
24 HR chart check completed.
--- NOTE | 2016-10-31 06:45 | NUR ---
CLIENT SLEPT GREATER THAN 6 HOURS THROUGHOUT SHIFT
[2016-10-31 07:57] VITALS: BP 110/54
--- NOTE | 2016-10-31 12:34 | NUR ---
PT was in attendence for RT Group/Games. PT also participated. In the begining PT did not want to participate in group but when AT set up the [employer] [employer] game PT stated "how's come I'm not playing?" so AT set PT up and PTs played for approximately 45 minutes untill PT stated he was tired then PT choose to color for a while. During game PT was appropriate and talkative
--- NOTE | 2016-10-31 13:09 | NUR ---
SWS called and left vm to check on the status of pt's pasrr and if [facility]
--- NOTE | 2016-10-31 14:05 | NUR ---
WOUND CARE TX TO LEFT HEEL COMPLETED PER ORDERS. PT TOLERATED WELL.
--- NOTE | 2016-10-31 14:53 | NUR ---
SAEED called the Pasrr dept. back to confirm that pt. Pasrr had been completed by Liyah Freedman. It has been completed and they are faxing a copy to the unit shortly. pt. to be d/c'ed tomorrow to [facility].
--- NOTE | 2016-10-31 15:42 | NUR ---
PT did not attend RT Group/Painting this afternoon. PT was in his chair sleeping
--- NOTE | 2016-10-31 17:31 | NUR ---
BENZENE OPERATOR: SET UP TRASPORTATIN FOR PATIENT. [facility] WILL BE PICKING PATIENT UP AT 1030 ON 11/01/16.
--- NOTE | 2016-10-31 17:38 | NUR ---
TREATMENT TEAM WAS HELD WITH THE FOLLOWING: DR. PARISH, CLINICAL TRIAL HEAD, MEDICAL STUDENT, RN, AT, AND SWs. WAITING FOR UPDATE FOR pasrr. DR. PARISH SAID PT CAN GO WHEN PASRR IS RECEIVED. INFORMED THAT A LETTER WAS SENT TO FIRE EXTINGUISHER REPAIRER INSPECTOR [facility]'S OFFICE ABOUT PT STABLE FOR [facility]OVE TO [facility]. [facility] HAS TO PETIOTN THE COURT [facility]
--- NOTE | 2016-10-31 17:58 | NUR ---
MOOD IS STABLE WITH PERIODS OF IRRITABILITY. ST/LT MEMORY DEFICITS NOTED. PLEASANTLY CONFUSED MOST OF THE SHIFT. APPETITE FAIR THIS SHIFT, TAKING FLUIDS WELL. MEDICATION COMPLIANT WITHOUT DIFFICULTY. UP MOST OF THE DAY, SITTING IN DINNING AREA, WATCHING TV. NONSENSICAL IN SPEECH D/T CONFUSION, THINKS HE IS "IN THE SHOP."RESPIRATIONS EASY AND EVEN. NO DISTRESS NOTED. WILL CONTINUE TO REORIENT FREQUENTLY T/O THE SHIFT. CONTINUE WITH Q15 MIN OBSERVATION CHECKS PER ORDERS. FALL PRECAUTIONS MAINTAINED PER POLICY. BODY ALARM IN PLACE AND FUCTIONING PROPERLY.
--- NOTE | 2016-11-01 02:43 | NUR ---
24 HR chart check completed.
--- NOTE | 2016-11-01 05:52 | NUR ---
B: AGGRESSION, AGITATION I: THERAPEUTIC COMMUNICATION, 1:1, MEDICATION COMPLIANT R: PATIENT PROVIDED WITH ACTIVITIES, 1:1, TOILETED AND NOURISHMENT P: CONTINUE PLAN OF CARE, OFFER ACTIVITIES
--- NOTE | 2016-11-01 06:05 | NUR ---
PATIENT SLEPT GREATER THAN 7 HOURS THIS SHIFT. PATIENT ELEVATED BILATERAL LOWER EXTREMITIES.
[2016-11-01 07:36] VITALS: BP 115/65
--- NOTE | 2016-11-01 09:15 | NUR ---
FREDRICK HERRERA MADE AWARE THAT PATIENT WILL BE DISCHARGED TODAY AT 1200. SHE STATED THAT HE NO LONGER NEEDS HIS SCRIPT FOR LEVOQUIN AND TO SHRED IT AND THAT SHE WILL COMPLETE HER PORTION OF THE DISCHARGE.
--- NOTE | 2016-11-01 09:37 | NUR ---
Patient is scheduled to be discharged today to [place] Maddison L[facility]pez OTR/[facility]
--- NOTE | 2016-11-01 09:50 | NUR ---
ОЛЕГ notified TERRIE Jesus of [facility] that Pt was ebing picked up around 10:30am for discharge to facility. TERRIE stated that Alyson was waiting on PASRR. ОЛЕГ faxed resluts to [facility]. Actual PASRR needs to be obtained from [facility]. TERRIE will chaeck with Alyson.
--- NOTE | 2016-11-01 09:51 | NUR ---
CHARLES, ACCEPTING RN AT [facility], WAS GIVEN REPORT BY THIS RN VIA TELEPHONE AND MADE AWARE THAT HIS DISCHARGE TIME IS SET FOR 1200.
--- NOTE | 2016-11-01 11:08 | NUR ---
PT was in attendence for RT Group/ Crafts but did not participate. PT stated he didnt want to do a craft. AT told PT she would help him but he didnt want to Particapate. AT asked PT if he wanted to color which he enjoys but PT refused that.
--- NOTE | 2016-11-01 12:37 | NUR ---
PT IRRITABLE DURING LUNCH. PT WAS NOTED TO SQUEEZE BOOST DRINK PURPOSEFULLY TO MAKE IT SQUIRT OUT THE TOP. ATTEMPT MADE TO GIVE MEDICATIONS. PT NEEDED MUCH ENCOURAGEMENT TO DO SO. MOOD IS IRRITABLE AT THIS TIME. EMOTIONAL SUPPORT PROVIDED BY THIS RN AND FELLOW NURSING STAFF. HE IS NOT EASILY REDIRECTED.
--- NOTE | 2016-11-01 13:06 | NUR ---
ATTEMPT MADE TO GIVE PATIENT ATIVAN PO, PT CLENCHED LIPS TOGETHER AND REFUSED TO TAKE ATIVAN PO. PT ALSO GRABBED MILIEU SPECIALIST'S ARM AND SQUEEZED NEEDING ANOTHER STAFF TO GET PATIENT TO RELEASE HIS POLISHING WHEEL REPAIRER. PT IS CONFUSED AND NOT EASILY REDIRECTED.
--- NOTE | 2016-11-01 13:27 | NUR ---
1mg ativan IM given for anxious symptoms including: increased confusion and irritablility.
--- NOTE | 2016-11-01 13:45 | NUR ---
ATIVAN EFFECTIVE. PT SIGNIFICANTLY LESS IRRITABLE. PT IS CALM, QUIET AND CONFUSED.
--- NOTE | 2016-11-01 13:55 | NUR ---
PT LEFT UNIT ON STRETCHER WITH AMBULANCE STAFF. PT'S BEHAVIOR IS CALM AND COOPERATIVE. AMBULANCE STAFF MADE AWARE PT WAS GIVEN ATIVAN BEFORE THEY ARRIVED FOR IRRITABILITY AND AGITATION.
--- NOTE | 2016-11-01 17:13 | NUR ---
ОЛЕГ spoke with Alyson inquiring about PASRR origgato. ОЛЕГ stated that she needed to obtain it from [facility]. ОЛЕГ gave Alyson Silveira's Number for [facility] to assist in the matter. Pt to be transported now around noon due to ambulance on another call.
--- NOTE | 2016-11-01 17:15 | NUR ---
Pt was discharged aroud 2pm to [facility] . Discharge paperwork faxedto facility and copied for mailing to guardian. facility coordinator givend information to send to guardian.
== END 2016-11-01 13:55 | DRG 56 ==
LOC: 3N 08:18
PROVIDERS: Registered Nurse; ADMIT Psychiatry & Neurology Psychiatry
DX: G20 Parkinson's disease (principal); E43 Unspecified severe protein-calorie malnutrition; N30.01 Acute cystitis with hematuria; L97.429 Non-pressure chronic ulcer of left heel and midfoot with unspecified severity; B96.89 Other specified bacterial agents as the cause of diseases classified elsewhere; F23 Brief psychotic disorder; F02.80 Dementia in other diseases classified elsewhere, unspecified severity, without behavioral disturbance, psychotic disturbance, mood disturbance, and anxiety; E03.9 Hypothyroidism, unspecified; K21.9 Gastro-esophageal reflux disease without esophagitis; G25.81 Restless legs syndrome; F41.1 Generalized anxiety disorder; F25.9 Schizoaffective disorder, unspecified; F32.9 Major depressive disorder, single episode, unspecified; E55.9 Vitamin D deficiency, unspecified; I73.9 Peripheral vascular disease, unspecified; Z79.899 Other long term (current) drug therapy; Z79.82 Long term (current) use of aspirin